=== PATIENT | female | born 1965 | race African-American/Black ===

== ENCOUNTER 2017-04-28 15:27 | Emergency (ER) | payer OTHER ==
--- NOTE | 2017-04-28 17:08 | UC ---
Hand/Wrist HPI - HPI Summary HPI Summary: 51 yo female with right wrist pain since December hurts to lift or turn she is right handed told by her manager critical care unit not to take NSAIDs due to labile hypertension also desires right lower ext xr chronic pain s/p fibular fx - History Of Current Complaint Chief Complaint: UCUpperExtremity Stated Complaint: WRIST INJURY Time Seen by Provider: 04/28/17 16:40 Hx Obtained From: Patient Hx Last Menstrual Period: 04/13/17 Onset/Duration: Gradual Onset, Lasting Weeks Severity Initially: Moderate Severity Currently: Moderate Pain Intensity: 4 - worse with any movement Pain Scale Used: 0-10 Numeric Character Of Pain: Dull, Aching Aggravating Factor(s): Movement, Flexion, Extension, Internal/External Rotation , Twisting, Pulling Alleviating Factor(s): Rest Related History: Dominant Hand Right - Allergies/Home Medications Allergies/Adverse Reactions: Allergies Allergy/AdvReac Type Severity Reaction Status Date / Time NSAIDs AdvReac See Comment Verified 04/28/17 16:25 Home Medications: Home Medications Valsartan/HCTZ 80/12.5(NF) [Diovan Hct 80/12.5(NF)] 1 tab PO DAILY 04/28/17 [ History Confirmed 04/28/17] PMH/Surg Hx/FS Hx/Imm Hx Previously Healthy: Yes Cardiovascular History: Hypertension - Surgical History Surgical History: Yes Surgery Procedure, Year, and Place: 1993 RIGHT ANKLE FRACTURE [place]. 1983, 1986, 1994, 1996, 09/01 [facility]2011 [facility] [place] hernia repair 03/03 - Family History Known Family History: Positive: Cardiac Disease - CAD, Hypertension, Other - CVA - Social History Alcohol Use: None Substance Use Type: None Smoking Status (MU): Never Smoked Tobacco - Immunization History Most Recent Influenza Vaccination: no Review of Systems Constitutional: Negative Skin: Negative Eyes: Negative ENT: Negative Respiratory: Negative Cardiovascular: Negative Gastrointestinal: Negative Genitourinary: Negative Motor: Negative Neurovascular: Negative Musculoskeletal: Arthralgia Neurological: Negative Psychological: Negative Is Patient Immunocompromised?: No All Other Systems Reviewed And Are Negative: Yes Physical Exam Triage Information Reviewed: Yes Appearance: Well-Appearing, No Pain Distress, Well-Nourished Vital Signs: Initial Vital Signs Temp 97.8 F 04/28/17 16:29 Pulse 83 04/28/17 16:29 Resp 16 04/28/17 16:29 BP 155/101 04/28/17 16:29 Pulse Ox 100 04/28/17 16:29 Vital Signs Reviewed: Yes Eyes: Positive: Conjunctiva Clear ENT: Positive: Hearing grossly normal. Negative: Nasal congestion, Nasal drainage, Tonsillar exudate, Trismus, Muffled voice, Hoarse voice Respiratory: Positive: Lungs clear, Normal breath sounds, No respiratory distress, No accessory muscle use Cardiovascular: Positive: RRR, No Murmur Musculoskeletal: Positive: No Edema, ROM Limited @ - right wrist, also tender ulnar aspect of wrist and dorsum, NVI Neurological: Positive: Alert Psychological Exam: Normal Skin Exam: Normal Skin: Positive: rashes Diagnostics - Radiology No standard instances Xray Interpretation: No Acute Changes - right wrist or right tib fib Radiology Interpretation Completed By: Radiologist Hand/Wrist Course/Dx - Differential Dx/Diagnosis Provider Diagnoses: right wrist pain ? triangular cartilage injury. chronic right fibular pain Discharge - Discharge Plan Condition: Stable Disposition: HOME Patient Education Materials: Wrist Injury (ED) Forms: *Work Release Referrals: Maribell Mae MD [Medical Doctor] - As Soon As Possible Kristian Burkett MD [Primary Care Provider] - Additional Instructions: I suggest you see an orthopedist about both your wrist and lower leg pain Images Hands: 1 - tender/limited ROM Front/Back of Body, Lg (Hughes): 1 - tender laterally, no swelling , no calf pain
[2017-04-28 17:38] VITALS: BP 155/106
--- NOTE | 2017-04-28 17:47 | RAD ---
Indication: Right lower leg pain. 2 views of the right lower leg demonstrates no fracture. No other bone or joint abnormality is identified. IMPRESSION: No fracture of the right lower leg is noted.
--- NOTE | 2017-04-28 17:47 | RAD ---
Indication: Indication: Right wrist pain. 3 views of the right wrist demonstrates no fracture. No other bone or joint abnormality is identified. IMPRESSION: No fracture of the right wrist is noted.
== END 2017-04-28 18:07 | disposition home or self-care (01) ==
LOC: UCEAST 15:27
DX: M25.531 Pain in right wrist (principal); M79.661 Pain in right lower leg; I10 Essential (primary) hypertension; Z88.6 Allergy status to analgesic agent
CPT/HCPCS: 99212; G0463

== ENCOUNTER 2017-06-16 10:42 | Emergency (ER) | payer OTHER ==
[2017-06-16 12:07] VITALS: BP 140/100
--- NOTE | 2017-06-16 12:57 | RAD ---
HISTORY: Left foot pain, dorsal foot pain, trauma COMPARISONS: None VIEWS: 3, Frontal, lateral, and oblique views of the left foot FINDINGS: BONE DENSITY: Normal. BONES: There is no displaced fracture. There is a plantar calcaneal enthesophyte. JOINTS: There is no arthropathy. ALIGNMENT: There is no dislocation. SOFT TISSUES: Unremarkable. OTHER FINDINGS: None. IMPRESSION: HEEL SPUR. NO ACUTE OSSEOUS INJURY. IF SYMPTOMS PERSIST, RECOMMEND REPEAT IMAGING.
--- NOTE | 2017-06-16 13:12 | UC ---
Lower Extremity/Ankle HPI - HPI Summary HPI Summary: Pt presents with left foot pain s/p stubbing her left toe on a piece of wood last night. She tells me that she was walking in the dark and stubbed her left big toe into a piece of wood - had immediate pain in her toe and midfoot. She took tylenol with mild relief. She is able to ambulate, but this causes her significant pain. She denies numbness, tingling, or previous hx. She has been told not to take ibuprofen, but she can't remember why. - History of Current Complaint Chief Complaint: UCLowerExtremity Stated Complaint: FOOT INJURY Hx Obtained From: Patient Hx Last Menstrual Period: 06/15/2017 Onset/Duration: Sudden Onset Severity Initially: Severe Severity Currently: Severe Pain Intensity: 7 Pain Scale Used: 0-10 Numeric Aggravating Factor(s): Standing, Ambulation Alleviating Factor(s): Rest, Elevation Able to Bear Weight: Yes - Allergies/Home Medications Allergies/Adverse Reactions: Allergies Allergy/AdvReac Type Severity Reaction Status Date / Time NSAIDs AdvReac See Comment Verified 06/16/17 12:01 PMH/Surg Hx/FS Hx/Imm Hx Previously Healthy: Yes Cardiovascular History: Hypertension - Surgical History Surgical History: Yes Surgery Procedure, Year, and Place: 1993 RIGHT [place]KLE FRACTURE [place] [place]. 1983, 1986, 1994, 1996, 09[place]01 [place] [facility] [place] 03/03 - Family History Known Family History: Positive: Cardiac Disease - CAD, Hypertension, Other - CVA - Social History Occupation: Employed Full-time Lives: With Family Alcohol Use: None Substance Use Type: None Smoking Status (MU): Never Smoked Tobacco - Immunization History Most Recent Influenza Vaccination: no Review of Systems Constitutional: Negative Skin: Negative Respiratory: Negative Cardiovascular: Negative Neurovascular: Negative Musculoskeletal: Decreased ROM - Left foot/big toe, Other: - Pain Left foot/big toe Neurological: Negative Psychological: Negative All Other Systems Reviewed And Are Negative: Yes Physical Exam Triage Information Reviewed: Yes Appearance: Well-Appearing, No Pain Distress, Well-Nourished Vital Signs: Initial Vital Signs Temp 98.1 F 06/16/17 12:02 Pulse 88 06/16/17 12:02 Resp 18 06/16/17 12:02 BP 140/100 06/16/17 12:02 Pulse Ox 98 06/16/17 12:02 Vital Signs Reviewed: Yes Neck: Positive: Supple, No Lymphadenopathy, Other: - NTTP. FROM. Respiratory: Positive: Lungs clear, Normal breath sounds, No respiratory distress Cardiovascular: Positive: RRR, No Murmur, Pulses Normal - DP and TP, Brisk Capillary Refill - Left foot and all toes Musculoskeletal: Positive: No Edema - Left foot/big toe, Strength Limited @ - Left foot/big toe due to pain, ROM Limited @ - Left foot/big toe due to pain. Dorsiflexion and plantar flexion cause significant pain., Other: - TTP over dorsal left big toe, MTP, and navicular. No obvious bony deformities, ecchymosis , or edema. Neurological: Positive: Alert, Other: - Sensations intact left foot and all toes Psychological: Positive: Age Appropriate Behavior Lower Extremity Course/Dx - Course Course Of Treatment: IMPRESSION:HEEL SPUR. NO ACUTE OSSEOUS INJURY. IF SYMPTOMS PERSIST, RECOMMEND REPEAT IMAGING. Reference #: [id number] cleared. I suspect that she has a foot contusion vs muscle strain - she is in a disproportionate amount of pain for this TOM, thus I have a concern for underlying tendon or soft tissue injury. Therefore, I will place her in a CAM boot and advise to use crutches - f/u with Ortho JENNIFER. - Differential Dx/Diagnosis Provider Diagnoses: Left foot contusion. Left foot muscle strain Discharge - Discharge Plan Condition: Stable Disposition: HOME Prescriptions: HYDROcodone/ACETAMIN 5-325 MG* [[place] 5-325 TAB*] 1 tab PO Q8H PRN 3 Days #9 tab MDD 3 PRN Reason: Pain Patient Education Materials: Foot Contusion (ED) Forms: *Work Release Referrals: Kristian Burkett MD [Primary Care Provider] - Jordon Moore MD [Medical Doctor] - As Soon As Possible Additional Instructions: If you develop a fever, shortness of breath, chest pain, new or worsening symptoms - please call your PCP or go to the ED. Your blood pressure was high at todays visit. Please see your primary provider within 4 weeks for recheck and re-evaluation. 1) Please call Orthopedics at the number below to schedule a follow up appointment for their next available time. 2) Rest, Ice, and Elevate your foot as much as possible for the next 24-48hrs. 3) Use the CAM boot and crutches as needed for discomfort.
== END 2017-06-16 13:30 | disposition home or self-care (01) ==
LOC: UCEAST 10:42
DX: S90.32XA Contusion of left foot, initial encounter (principal); S93.602A Unspecified sprain of left foot, initial encounter; W22.8XXA Striking against or struck by other objects, initial encounter; Y92.9 Unspecified place or not applicable
CPT/HCPCS: 99213; G0463

== ENCOUNTER 2017-11-18 14:01 | Emergency (ER) | payer OTHER ==
[2017-11-18 14:09] VITALS: BP 159/101
--- NOTE | 2017-11-18 14:16 | UC ---
Upper Extremity HPI - HPI Summary HPI Summary: 52 yo female presents with right elbow pain s/p lifting a bag of dirt at work about 2 weeks ago. She tells me that she works in the [employer] department at [employer] and often lifts heavy items. About 2 weeks ago she was lifting a bag of dirt and felt a pull in her right elbow that was immediately painful. Ever since that time, every time she lifts something she will have pain in her elbow down her right arm. Has been taking tylenol, which helped at first - but no longer is helping. Rest helps as well, but she is still working and is not able to rest her arm. Denies numbness or tingling. - History of Current Complaint Chief Complaint: UCUpperExtremity Stated Complaint: LEFT ARM INJURY Time Seen by Provider: 11/18/17 14:16 Hx Obtained From: Patient Hx Last Menstrual Period: 11/17/17 Onset/Duration: Sudden Onset Severity Initially: Moderate Severity Currently: Severe Pain Intensity: 9 Pain Scale Used: 0-10 Numeric - Allergies/Home Medications Allergies/Adverse Reactions: Allergies Allergy/AdvReac Type Severity Reaction Status Date / Time NSAIDS (Non-Steroidal Allergy Rash Verified 11/18/17 14:10 Anti-Inflamma PMH/Surg Hx/FS Hx/Imm Hx Cardiovascular History: Hypertension - Surgical History Surgical History: Yes Surgery Procedure, Year, and Place: 1993 RIGHT ANKLE FRACTURE [facility] [place]. 1983, 1986, 1994, 1996, 09/01 [facility] (2011 [facility] [place] hernia repair 03/03 - Family History Known Family History: Positive: Cardiac Disease - CAD, Hypertension, Other - CVA - Social History Occupation: Employed Full-time Lives: With Family Alcohol Use: None Substance Use Type: None Smoking Status (MU): Never Smoked Tobacco - Immunization History Most Recent Influenza Vaccination: no Review of Systems Constitutional: Negative Skin: Negative Respiratory: Negative Cardiovascular: Negative Neurovascular: Negative Musculoskeletal: Other: - Right elbow pain Neurological: Negative Psychological: Negative All Other Systems Reviewed And Are Negative: Yes Physical Exam - Summary Physical Exam Summary: GENERAL: NAD. WDWN. No pain distress. SKIN: No rashes, sores, lesions, or open wounds. NECK: Supple. Nontender. No lymphadenopathy. CHEST: No accessory muscle use. Breathing comfortably and in no distress. CV: RRR. Without m/r/g. Pulses intact radial and ulnar. MSK: Right elbow: Moderate TTP over lateral and medial epicondyle. Positive chair lift test. Pain medially with middle finger flexion against resistance. FROM. 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 No edema or obvious bony deformities. NEURO: Alert. Sensations intact hand and all fingers. PSYCH: Age appropriate behavior. Triage Information Reviewed: Yes Vital Signs: Initial Vital Signs Temp 98 F 11/18/17 14:07 Pulse 87 11/18/17 14:07 Resp 16 11/18/17 14:07 BP 159/101 11/18/17 14:07 Pulse Ox 100 11/18/17 14:07 Upper Extremity Course/Dx - Course Course Of Treatment: Suspect epicondylitis. She cannot take po NSAIDs due to her troubles with HTN. Therefore I will try voltaren gel and have her keep taking tylenol. May also try an OTC elbow brace. Will also refer her to sports medicine for further eval and treatment. - Differential Dx/Diagnosis Provider Diagnoses: Right elbow pain Discharge - Sign-Out/Discharge Documenting (check all that apply): Discharge/Admit/Transfer - Discharge Plan Condition: Stable Disposition: HOME Prescriptions: Diclofenac 1% GEL (NF) [Voltaren 1% GEL (NF)] 1 applic TOPICAL BID PRN #1 tube PRN Reason: Pain Patient Education Materials: Tennis Elbow (ED) Referrals: Kristian Burkett MD [Primary Care Provider] - [facility] [Provider Group] - As Soon As Possible Additional Instructions: If you develop a fever, shortness of breath, chest pain, new or worsening symptoms - please call your PCP or go to the ED. Your blood pressure was high at todays visit. Please see your primary provider within 4 weeks for recheck and re-evaluation. 1) Please call Sport Medicine to schedule a follow up appointment regarding your right shoulder and right elbow pain 2) May also try an elbow brace for added support and pain relief - Billing Disposition and Condition Condition: STABLE Disposition: Home
== END 2017-11-18 14:30 | disposition home or self-care (01) ==
LOC: UCEAST 14:01
DX: M25.521 Pain in right elbow (principal); X50.0XXA Overexertion from strenuous movement or load, initial encounter; Y93.89 Activity, other specified; Y92.512 Supermarket, store or market as the place of occurrence of the external cause; Y99.0 Civilian activity done for income or pay; Z88.6 Allergy status to analgesic agent; I10 Essential (primary) hypertension
CPT/HCPCS: 99212; G0463

== ENCOUNTER 2018-07-10 14:09 | Emergency (ER) | payer OTHER, MEDICAID ==
[2018-07-10 15:44] VITALS: BP 143/95
--- NOTE | 2018-07-10 15:58 | UC ---
Upper Extremity HPI - HPI Summary HPI Summary: Pt presents to with pain in right elbow. Pt states pain started last Tuesday after lifting several heavy boxes of books at work ([employer]) Pt states when got home felt her elbow was stiff. Pt with significant discomfort with flex/ext right elbow. Pt states feels stiff and had pain radiating down right forearm with movement. No paresthesia. No weakness. Pt is RHD. Pt has used silonpas and taken APAP with little improvement. Pt also took GAbapentin - old script of hers without help. Pt reports progressive discomfort right upper back and shoulder - holding arm tight to body. Pt has h.o right rotator cuff injury to same. Does not work until next week Pt's medications reviewed this visit - History of Current Complaint Chief Complaint: UCUpperExtremity Stated Complaint: ARM PAIN RT Time Seen by Provider: 07/10/18 15:51 Hx Obtained From: Patient Hx Last Menstrual Period: 11/17/17 Pain Intensity: 8 - Allergies/Home Medications Allergies/Adverse Reactions: Allergies Allergy/AdvReac Type Severity Reaction Status Date / Time No Known Allergies Allergy Verified 07/10/18 15:45 Home Medications: Home Medications Atorvastatin* [Lipitor*] 40 mg PO 1700 07/10/18 [History Confirmed 07/10/18] Carvedilol [Coreg] 25 mg PO DAILY 07/10/18 [History Confirmed 07/10/18] Escitalopram (NF) [Lexapro 20 mg (NF)] 20 mg PO DAILY 07/10/18 [History Confirmed 07/10/18] Irbesartan [Avapro] 300 mg PO DAILY WITH MEAL 07/10/18 [History Confirmed ] Spironolact/Hydrochlorothiazid [Spironolactone/Hydrochlor 25-25 mg] 1 tab PO DAILY WITH MEAL 07/10/18 [History Confirmed 07/10/18] dilTIAZem 360 MG 24HR ER (NF) [Diltiazem 360 mg 24Hr ER] 360 mg PO DAILY WITH MEAL 07/10/18 [History Confirmed 07/10/18] PMH/Surg Hx/FS Hx/Imm Hx Previously Healthy: Yes - right rotator cuff - Surgical History Surgical History: Yes Surgery Procedure, Year, and Place: 1993 RIGHT ANKLE FRACTURE [place]. 1983, 1986, 1994, 1996, 09/01 [facility] [facility] [place] her[place] repair 03/03 - Family History Known Family History: Positive: Cardiac Disease - CAD, Hypertension, Other - CVA - Social History Alcohol Use: None Substance Use Type: None Smoking Status (MU): Never Smoked Tobacco - Immunization History Most Recent Influenza Vaccination: no Review of Systems All Other Systems Reviewed And Are Negative: Yes Constitutional: Positive: Negative Skin: Positive: Negative Motor: Positive: Other - right elbow pain Neurovascular: Negative: Decreased Sensation Is Patient Immunocompromised?: No Physical Exam Triage Information Reviewed: Yes Appearance: Well-Appearing, No Pain Distress, Well-Nourished Vital Signs: Initial Vital Signs Temp 98.5 F 07/10/18 15:40 Pulse 83 07/10/18 15:40 Resp 18 07/10/18 15:40 BP 143/95 07/10/18 15:40 Pulse Ox 99 07/10/18 15:40 Vital Signs Reviewed: Yes Neck exam: Normal Neck: Positive: Supple, Nontender, No Lymphadenopathy Respiratory Exam: Normal Respiratory: Positive: Chest non-tender, Lungs clear, Normal breath sounds Cardiovascular: Positive: Other: - 2+ DP, PT CBT < 2 sec Musculoskeletal: Positive: ROM Limited @ - No pain spinous process c/t/l/s Full AROM c spine + TTP right trapezius + abduct/ext right elbow Full 5/5 flexion elbow pain with extension >120 but able near full + pronate/supinate + flex/ext wrist + TTP right elbow, medial epicondyl extending prox medial forearm No edema, no warmth 5/5 grasp, Other: Neurological: Positive: Other: - + thumb up, a ok, finger spread, finger cross + gross sensation throughout Psychological Exam: Normal Skin Exam: Normal Diagnostics - Radiology No standard instances Radiology Interpretation Completed By: Radiologist - Patient Name: DIONY WALLS Medical Record#: [id number] Ordering Physician: Erin Kathleen MD Acct.#: [id number] : 1965 Age: 52 Sex: F Location: [facility]RG[facility]ARE [facility] Exam Date: 07/10/18 1609 ADM Status: REG ER Order Information: ELBOW RIGHT 3+ VWS Accession Number: [id number] CPT: 61623 INDICATION: RIGHT elbow pain at the medial epicondyle for 3 days. No preceding injury. COMPARISON: No relevant prior exams available on the [facility] [place]ACS for comparison. TECHNIQUE: AP, lateral, and oblique views RIGHT elbow. REPORT: Negative for fracture. Displaced anterior fat pad consistent with joint effusion. 0.6 cm loose body at the anterior joint recess. Mild osteophytosis without significant joint space narrowing. Enthesophytes at the medial and lateral epicondyles. Mild nonfocal soft tissue swelling. IMPRESSION: #. Osteoarthritis. #. Joint effusion and loose body. #. 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 <Electronically signed by Joel Gutierres MD in OV> 07/10/18 1634 Dictated By: Joel Gutierres MD Dictated Date/ Time: 07/10/18 1634 Transcribed Date/Time: 07/10/18 1632 Copy to: CC:Kristian Burkett MD; Erin Kathleen MD Imaging - [facility] - [place] [facility] [address] [address] ph ) ph ([phone]) ph ([phone]) This report is only to be considered final once signed by the Provider(s) as displayed in the "< Electronically Signed by >" field (s). Absence of a signature indicates the report is in a draft status and still needs to be finalized. In the event this document was created by someone other than the signing Provider, the individual initiating the document will be listed in the "Entered by:" or "Dictated by:" saba. 1 of 1 Re-Evaluation - Re-Evaluation First Eval Re-Evaluation Time: 16:53 - reviewed images with pt Change: Unchanged - no concern for infection + AROM, no warmth erythema, edema , point tenderness sling ice Dr. chang Upper Extremity Course/Dx - Course Course Of Treatment: Pt with right elbow pain since Fri - pt states became stiff after moving boxes of books at work at [employer]. Pt with good CSM. Pt with pain medial epicondyl with palpation and ROM. No effusion. suspect tendonitis. Pt also with discomfort right trapezius - slight muscle spasm - pt spliont forearm to body. will give motrin. sling with exercises. ice. imaging. APAP/motrin dosing. f/u with occumed. Pt previously seen Dr. Chang - will provide his contact as well. pt in agreement with plan. Pt's BP slightly elevated - h/o similar - recommend f/u with PCP. pt in discomfort - Differential Dx/Diagnosis Provider Diagnosis: Right elbow tendonitis Discharge - Sign-Out/Discharge Documenting (check all that apply): Patient Departure All imaging exams completed and their final reports reviewed: Yes - Discharge Plan Condition: Stable Disposition: HOME Referrals: Fabio Wilkes MD [Medical Doctor] - Kristian Chang MD [Medical Doctor] - Additional Instructions: - Contact Dr. Wilkes or Dr. Chang tomorrow to schedule a follow-up appointment this week - wear sling for comfort and support - remove arm from sling 2-3 times a day - genlty make small circles with your shoulder and bend/straighten your elbow as demostrated in the urgent care - alternate ibuprofen (Advil, Motrin) 600mg and tylenol 650mg tablets every 3 hours for pain. Take with food - Apply ice (wrapped in a towel) 20 minutes at a time, 2-3 times a day. - Billing Disposition and Condition Condition: STABLE Disposition: Home
[2018-07-10] MEDS ORDERED: Ibuprofen TAB* 600 MG PO ONE (16:10)
== END 2018-07-10 17:00 | disposition home or self-care (01) ==
LOC: UCEAST 14:09
DX: M77.9 Enthesopathy, unspecified (principal); M25.521 Pain in right elbow
CPT/HCPCS: 99212; A9270-GY; G0463

== ENCOUNTER 2018-11-28 15:28 | Emergency (ER) | payer SELFPAY ==
[2018-11-28 15:43] VITALS: BP 157/107
--- NOTE | 2018-11-28 16:39 | UC ---
Lower Extremity/Ankle HPI - HPI Summary HPI Summary: 53 y/o female presents to the urgent care c/o Bilateral ankle swelling- for two weeks. Fell two weeks ago and injured left ankle. - History of Current Complaint Chief Complaint: UCLowerExtremity Stated Complaint: ANKLE PAIN Time Seen by Provider: 11/28/18 16:22 Hx Obtained From: Patient Hx Last Menstrual Period: 11/17/17 Pain Intensity: 8 - Allergies/Home Medications Allergies/Adverse Reactions: Allergies Allergy/AdvReac Type Severity Reaction Status Date / Time No Known Allergies Allergy Verified 11/28/18 15:44 Home Medications: Home Medications metFORMIN* [Glucophage 500 MG TAB *] 500 mg PO BID 11/28/18 [History Confirmed 11/28/18] PMH/Surg Hx/FS Hx/Imm Hx - Surgical History Surgical History: Yes Surgery Procedure, Year, and Place: 1993 RIGHT ANKLE FRACTURE [facility] [place]. 1983, 1986, 1994, 1996, 09/01 [facility] (2011 [facility] [place]). hernia repair 03/03 - Family History Known Family History: Positive: Cardiac Disease - CAD, Hypertension, Other - CVA - Social History Alcohol Use: None Substance Use Type: None Smoking Status (MU): Never Smoked Tobacco - Immunization History Most Recent Influenza Vaccination: no Physical Exam Vital Signs: Initial Vital Signs Temp 98.1 F 11/28/18 15:38 Pulse 89 11/28/18 15:38 Resp 16 11/28/18 15:38 BP 157/107 11/28/18 15:38 Pulse Ox 99 11/28/18 15:38 Lower Extremity Course/Dx - Course Course Of Treatment: Rt ankle X-ray ordered, Impression: Soft tissue swelling, no acute fracture. Pt most likely with a RT ankle Sprain. Pt immobilized with gel ankle splint to , given crutches to avoid weight bearing, Rx Ibuprofen PO to decrease swelling and pain. Pt advised RICE, take Ibuprofen PO for pain and to f/u with PCP on orthopedic in 1 week if not improvement of symptoms for further treatment. Parents and Pt understood and agreed and left the clinic ambulating w/ the help of crutches. - Differential Dx/Diagnosis Differential Diagnosis/HQI/PQRI: Arthritis, Contusion, Dislocation, Fracture ( Closed), Sprain, Strain, Tendonitis Provider Diagnosis: Sprain of right ankle, Sprain of left ankle, Osteoarthritis of ankle, left, Uncontrolled hypertension Discharge - Sign-Out/Discharge Documenting (check all that apply): Patient Departure - d/C home All imaging exams completed and their final reports reviewed: Yes - Discharge Plan Condition: Stable Disposition: HOME Prescriptions: Ibuprofen TAB* [Motrin TAB* 800 MG] 800 mg PO Q6H PRN #30 tab PRN Reason: Pain Patient Education Materials: Ankle Sprain (ED), Osteoarthritis (ED) Forms: *Work Release Referrals: Kristian Burkett MD [Primary Care Provider] - 3 Days Kristian Chang MD [Medical Doctor] - 1 Week Ganesh Spring DPM [Doctor of Podiatric Medicine] - 1 Week Additional Instructions: 1-Please take Ibuprofen PO q6-8hrs prn after meals as directed to alleviate pain and swelling. 2-Please apply ice, keep your Left ankle immobilized with the Trent bandage and use the CAM boot you have at home. Use your Cane to avoid too much weight bearing Elevate your ankle. 3- Please f/u with your orthopedic Orthopedic Dr Chang or your Posting Specialist DR Arguelles in your appt in 1 week for further evaluation and treatment on your ankle sprain 4-Your BP is elevated today. Please take your BP medications and decrease salt in your diet, monitor BP and if it continues to be elevated please f/u with your PCP for further management. If you develop chest pain, dizziness, visual disturbances, SOB, or severe TRAMMELL please go immediately to the ER for further management - Billing Disposition and Condition Condition: STABLE Disposition: Home
[2018-11-28] MEDS ORDERED: Ibuprofen TAB* 400 MG PO ONE (16:52)
== END 2018-11-28 17:33 | disposition home or self-care (01) ==
LOC: UCEAST 15:28
DX: S93.402A Sprain of unspecified ligament of left ankle, initial encounter (principal); S93.401A Sprain of unspecified ligament of right ankle, initial encounter; M19.072 Primary osteoarthritis, left ankle and foot; I10 Essential (primary) hypertension; X58.XXXA Exposure to other specified factors, initial encounter; Y92.9 Unspecified place or not applicable
CPT/HCPCS: 99212; A9270-GY; G0463

== ENCOUNTER 2019-07-21 20:41 | Emergency (ER) | payer OTHER ==
[2019-07-21] MEDS ORDERED: Lorazepam PYXIS KEY PRN (20:50)
[2019-07-21] MEDS ORDERED: LORazepam INJ* 2 MG/ML 1 ML VIAL IM ONE (20:50)
[2019-07-21] MEDS ORDERED: Lorazepam PYXIS KEY ONE (20:52)
[2019-07-21 22:05] LABS: Urine Appearance Clear; Urine Bilirubin Negative (Negative); Urine Blood Negative (Negative); Urine Color Straw; Urine Glucose Negative (Negative); Urine Ketones Negative (Negative); Urine Nitrite Negative (Negative); Urine Protein Negative (Negative); Urine Urobilinogen Negative (Negative)
[2019-07-21 22:12] LABS: Hematocrit 43 % (35-47); Hemoglobin 13.6 g/dL (12.0-16.0); Mean Corpuscular HGB Conc 32 g/dL (31-36); Mean Corpuscular Hemoglobin 22 pg (27-31); Mean Corpuscular Volume 68 fL (80-97); Mean Platelet Volume 7.3 fL (7.4-10.4); Platelet Count 410 10^3/uL (150-450); Red Blood Count 6.23 10^6 /uL (3.70-4.87); Red Cell Distribution Width 18 % (10-15); White Blood Count 7.2 10^3/uL (3.5-10.8)
--- NOTE | 2019-07-21 22:14 | ED ---
Psychiatric Complaint - HPI Summary HPI Summary: 53-year-old female with no significant past medical history presents to the emergency department today hyperventilating and crying and yelling "I don't feel well and I can't take this anymore". After the patient coming down she states she is here looking for mental health help. Patient denies suicidal ideation but does state she wants to "hurt him" when talking about her partner. Patient states she has not attempted suicide in the past. Patient denies recent recreational drug use or alcohol use. Patient states she is constantly getting into arguments with her partner which is causing her to feel generally fatigued and unwell at home. Patient otherwise feels well and denies physical pain, chest pain, abdominal pain, urination, nausea, vomiting, diarrhea. - History Of Current Complaint Chief Complaint: EDGeneral Time Seen by Provider: 07/21/19 20:50 Hx Obtained From: Patient Hx Last Menstrual Period: 11/17/17 Onset/Duration: Gradual Onset Timing: Constant Severity Initially: Moderate Severity Currently: Moderate Character: Depressed Associated Signs And Symptoms: Positive: Sleep Disturbance Has Suicidal: Denies: Thoughts, Demonstrates Gesture Has Homicidal: Denies: Thoughts, Demonstrates Gesture - Allergies/Home Medications Allergies/Adverse Reactions: Allergies Allergy/AdvReac Type Severity Reaction Status Date / Time No Known Allergies Allergy Verified 11/28/18 15:44 Home Medications: Home Medications Atorvastatin* [Lipitor*] 40 mg PO 1700 07/10/18 [History Confirmed 11/28/18] Carvedilol [Coreg] 25 mg PO DAILY 07/10/18 [History Confirmed 11/28/18] Irbesartan [Avapro] 300 mg PO DAILY WITH MEAL 07/10/18 [History Confirmed ] Spironolact/Hydrochlorothiazid [Spironolactone/Hydrochlor 25-25 mg] 1 tab PO DAILY WITH MEAL 07/10/18 [History Confirmed 11/28/18] dilTIAZem ER 360 MG 24HR (NF) [Diltiazem 360 mg 24Hr ER] 360 mg PO DAILY WITH MEAL 07/10/18 [History Confirmed 11/28/18] Ibuprofen TAB* [Motrin TAB* 800 MG] 800 mg PO Q6H PRN #30 tab 11/28/18 [Rx] metFORMIN* [Glucophage 500 MG TAB *] 500 mg PO BID 11/28/18 [History Confirmed 11/28/18] PMH/Surg Hx/FS Hx/Imm Hx Endocrine/Hematology History: Denies: Hx Diabetes, Hx Thyroid Disease Cardiovascular History: Reports: Hx Angina, Hx Hypercholesterolemia, Hx Hypertension, Other Cardiovascular Problems/Disorders - HTN Denies: Hx Congestive Heart Failure, Hx Coronary Artery Disease, Hx Myocardial Infarction, Hx Valvular Heart Disease Respiratory History: Denies: Hx Asthma, Hx Chronic Obstructive Pulmonary Disease (COPD) GI History: Denies: Hx Ulcer History: Denies: Hx Renal Disease Musculoskeletal History: Reports: Hx Arthritis - RIGHT ANKLE, OLD INJURY Sensory History: Denies: Hx Contacts or Glasses, Hx Hearing Aid Opthamlomology History: Denies: Hx Contacts or Glasses - Surgical History Surgery Procedure, Year, and Place: 1993 RIGHT ANKLE FRACTURE [facility]. 1983, 1986, 1994, 1996, 09/01 [facility] ([address] [place] [address]). hernia repair 03/03 Hx Anesthesia Reactions: No Infectious Disease History: Unable to Obtain/Confirm Infectious Disease History: Denies: Hx Hepatitis, Hx Human Immunodeficiency Virus (HIV), Traveled Outside the in Last 30 Days - Family History Known Family History: Positive: Cardiac Disease - CAD, Hypertension, Other - CVA - Social History Alcohol Use: None Substance Use Type: Reports: None Hx Tobacco Use: No Smoking Status (MU): Never Smoked Tobacco Review of Systems Constitutional: Negative Eyes: Negative ENT: Negative Cardiovascular: Negative Respiratory: Negative Gastrointestinal: Negative Genitourinary: Negative Musculoskeletal: Negative Skin: Negative Neurological/Mental Status: Negative Positive: Anxious, Depressed All Other Systems Reviewed And Are Negative: Yes Physical Exam Triage Information Reviewed: Yes Vital Signs On Initial Exam: Initial Vitals Temp Pulse Resp BP Pulse Ox 99.5 F 92 26 169/125 99 07/21/19 20:53 07/21/19 20:53 07/21/19 20:53 07/21/19 20:53 07/21/19 20:53 Vital Signs Reviewed: Yes Appearance: Positive: Well-Appearing, No Pain Distress, Well-Nourished Skin: Positive: Warm, Skin Color Reflects Adequate Perfusion Eyes: Positive: EOMI, LIDA ENT: Positive: Hearing grossly normal Respiratory/Lung Sounds: Positive: Clear to Auscultation, Breath Sounds Present Cardiovascular: Positive: RRR, S1, S2 Abdomen Description: Positive: Nontender, Soft Bowel Sounds: Positive: Present Musculoskeletal: Positive: Strength/ROM Intact Neurological: Positive: Sensory/Motor Intact, Alert, Oriented to Person Place, Time, Normal Gait, Facial Symmetry, Speech Normal Psychiatric: Positive: Anxious, Depressed AVPU Assessment: Alert Procedures - Sedation Patient Received Moderate/Deep Sedation with Procedure: No Diagnostics - Vital Signs Vital Signs Temp Pulse Resp BP Pulse Ox 07/21/19 20:53 99.5 F 92 26 169/125 99 - Laboratory Lab Results: Lab Results 07/21/19 Range/Units 21:41 Urine Color Straw Urine Appearance Clear Urine pH 6.0 (5-9) Ur Specific [place] 1.010 (1.010-1.030) Urine Protein Negative (Negative) Urine Ketones Negative (Negative) Urine Blood Negative (Negative) Urine Nitrate Negative (Negative) Urine Bilirubin Negative (Negative) Urine Urobilinogen Negative (Negative) Ur Leukocyte Esterase Negative (Negative) Urine Glucose Negative (Negative) Result Diagrams: 07/21/19 22:03 07/21/19 22:03 Lab Statement: Any lab studies that have been ordered have been reviewed, and results considered in the medical decision making process. Course/Dx - Course Course Of Treatment: Patient was evaluated in the emergency department today for mental health problem. Vitals noted and stable. Patient was hysterical upon arrival to the emergency department hyperventilating. Patient was given 1 mg of Ativan IM to calm her down. Patient was complaining of chest palpitations and an EKG was done promptly. EKG shows no evidence of STEMI. Sinus rhythm at a rate of 76 bpm. Normal FL and QT intervals. Normal axis. There is T-wave flattening in lead V6, 3. Patient stated she desired mental health evaluation she was feeling stressed and anxious at home. Labs returned showing no significant abnormalities. Negative toxicology and urinalysis. Patient cleared for mental health evaluation and disposition. Psychiatry, Dr. Brown believed the patient was fit for outpatient follow-up with [facility] for individual and marriage counseling. Patient discharged outpatient follow-up. - Differential Dx/Clinical Impression Differential Diagnosis/HQI/PQRI: Positive: Acute Psychosis, Alcohol Intoxication , Anxiety, Bipolar Disorder, Depression, Homicidal Ideation, Schizophrenia, Suicidal Ideation Provider Diagnosis: Anxiety - Physician Notifications Discussed Care Of Patient With: Jamaal Brown - believed patient was fit for outpatient follow-up with [facility] for individual and marriage counseling. Discharge ED - Sign-Out/Discharge Documenting (check all that apply): Patient Departure - Discharge Plan Condition: Stable Disposition: HOME Referrals: Kristian Burkett MD [Primary Care Provider] - - Billing Disposition and Condition Condition: STABLE Disposition: Home - Attestation Statements Provider Attestation: I have seen the patient with the HEATHER and agree with the plan and documentation below except as noted: Briefly this a 53-year-old female with a history of a seizure disorder on Keppra, who missed dose 2 days, presenting with a seizure at home. No seizure activity in the ER, labs unremarkable for infection. Patient tolerating by mouth, given extra dose of Keppra, ambulating in the ED. We will go home with children Rosita Galicia MD
[2019-07-21 22:25] LABS: ALT 13 U/L (7-52); AST 15 U/L (13-39); Albumin 4.6 g/dL (3.2-5.2); Albumin/Globulin Ratio 1.5 (1-3); Alkaline Phosphatase 78 U/L (34-104); Anion Gap 9 mmol/L (2-11); BUN/Creatinine Ratio 19.4 (8-20); Blood Urea Nitrogen 14 mg/dL (6-24); CO2 Carbon Dioxide 26 mmol/L (22-32); Calcium 10.1 mg/dL (8.6-10.3); Chloride 101 mmol/L (101-111); EGFR African American 103.3 (>60); EGFR Non-African American 85.4 (>60); Globulin 3.1 g/dL (2-4); Glucose 105 mg/dL (70-100); Potassium 3.7 mmol/L (3.5-5.0); Sodium 136 mmol/L (135-145); Total Protein 7.7 g/dL (6.4-8.9)
[2019-07-21 22:27] LABS: ABS Basophils 0.1 10^3/ul (0-0.2); ABS Eosinophils 0.2 10^3/ul (0-0.6); ABS Lymphocytes 2.1 10^3/ul (1.0-4.8); ABS Monocytes 0.5 10^3/ul (0-0.8); ABS Neutrophils 4.3 10^3/ul (1.5-7.7); Lymphocyte % 29.7 %; Microcytosis 2+; Nucleated Red Blood Cells % 0.1
[2019-07-21 22:37] LABS: Urine Benzodiazepine Screen None Detected (None Detect); Urine Opiates Screen None Detected (None Detect)
[2019-07-21 22:41] LABS: Acetaminophen < 15 mcg/mL; Alcohol < 10 mg/dL (<10); Salicylate < 2.50 mg/dL (<30)
[2019-07-22 03:32] VITALS: BP 119/65
== END 2019-07-21 23:40 | disposition home or self-care (01) ==
LOC: ED 20:41
DX: F41.9 Anxiety disorder, unspecified (principal); R45.851 Suicidal ideations; E78.00 Pure hypercholesterolemia, unspecified; I10 Essential (primary) hypertension; F32.9 Major depressive disorder, single episode, unspecified; Z79.899 Other long term (current) drug therapy; Z79.83 Long term (current) use of bisphosphonates
CPT/HCPCS: 36415; 80053; 80307; 80320; 80329; 81003; 84443; 85025; 93005; 96372; 99285; G0480; J2060

== ENCOUNTER 2021-01-18 22:34 | Inpatient (IN) ==
[2021-01-18] MEDS ORDERED: NS 0.9% 1000 ml BAG 1,000 ML IV ONE ×2 (23:11→23:34)
[2021-01-18 23:37] LABS: ABS Monocytes 0.4 10^3/ul (0-0.8); ABS Neutrophils 4.2 10^3/ul (1.5-7.7); Hematocrit 41 % (35-47); Hemoglobin 13.1 g/dL (12.0-16.0); Lymphocyte % 17.3 %; Mean Corpuscular HGB Conc 32 g/dL (31-36); Mean Corpuscular Hemoglobin 21 pg (27-31); Mean Corpuscular Volume 66 fL (80-97); Mean Platelet Volume 8.2 fL (7.4-10.4); Nucleated Red Blood Cells % 0.1; Platelet Count 260 10^3/uL (150-450); Red Blood Count 6.16 10^6 /uL (3.70-4.87); Red Cell Distribution Width 16 % (10-15); White Blood Count 5.6 10^3/uL (3.5-10.8)
[2021-01-18 23:53] LABS: Albumin 3.9 g/dL (3.2-5.2); Albumin/Globulin Ratio 1.1 (1-3); C Reactive Protein 124.2 mg/L (<8.01); Calcium 9.2 mg/dL (8.6-10.3); EGFR African American 82.4 (>60); EGFR Non-African American 68.1 (>60); Globulin 3.6 g/dL (2-4); Potassium 3.5 mmol/L (3.5-5.0); Total Bilirubin 0.4 mg/dL (0.2-1.0); Total Protein 7.5 g/dL (6.4-8.9)
[2021-01-19 00:02] LABS: Activated Partial Thrombo Time 29.9 seconds (26.0-38.0); INR 1.25 (0.86-1.15)
[2021-01-19 00:09] LABS: Troponin I 0.01 ng/mL (<0.03)
[2021-01-19 00:23] LABS: Hypochromasia 1+; Microcytosis 3+
[2021-01-19 00:24] LABS: Anisocytosis 1+
[2021-01-19 00:27] LABS: Venous Bicarbonate HCO3 30.3 mmol/L (24-28)
[2021-01-19 01:04] LABS: Rapid COVID-19 Molecular Detected (Undetected)
[2021-01-19 01:13] LABS: Influenza A Molecular Negative (Negative); Influenza B Molecular Negative (Negative)
[2021-01-19] MEDS ORDERED: Iodixanol (CONTRAST) 320 MG/ML 100 ML SDV IV ONE (01:18)
[2021-01-19 01:25] LABS: Ferritin 237.3 ng/mL (11-307)
[2021-01-19] MEDS ORDERED: Ondansetron 4 mg VIAL 2 MG/ML 2 ml VIAL IV PRN (02:34)
[2021-01-19] MEDS ORDERED: Dextrose 50% Syringe 50 ml 25 GM/50 ML SYRINGE IV PUSH PRN (02:51)
[2021-01-19] MEDS ORDERED: guaiFENesin 100 mg/5 ml LIQ unit dose cup PO PRN (03:20)
[2021-01-19] MEDS ORDERED: Benzocaine/Menthol LOZ PO PRN (03:20)
[2021-01-19] MEDS ORDERED: Albuterol HFA INHALER 8 gm MDI INH PRN (03:20)
[2021-01-19] MEDS ORDERED: Remdesivir 100 mg Vial 200 MG in NS 0.9% 250 ml 210 ML IV ONE (05:00)
[2021-01-19] MEDS: Enoxaparin 40 MG/0.4 ML SYR SUBCUT SCH ×2 (05:04→20:21)
[2021-01-19 09:49] LABS: Urine Specific Gravity > 1.060 (1.002-1.030)
[2021-01-19 09:51] LABS: Urine Appearance Cloudy; Urine Bacteria Absent (Absent); Urine Bilirubin Negative (Negative); Urine Blood Negative (Negative); Urine Color Yellow; Urine Glucose Negative (Negative); Urine Ketones 1+ (Negative); Urine Nitrite Negative (Negative); Urine Protein 1+(30 mg/dL) (Negative); Urine Red Blood Cell Trace(0-2/hpf) (Absent); Urine Squamous Epithelial Cell Present (Absent); Urine Urobilinogen Negative (Negative); Urine White Blood Cell Trace(0-5/hpf) (Absent)
[2021-01-19 10:53] LABS: PCO2 Arterial 35 mmHg (35-45); PO2 Arterial 69 mmHg (80-100)
[2021-01-19] MEDS ORDERED: Tocilizumab 200 MG/10 ML 10 ml VIAL IVPB ONE (13:48)
[2021-01-19] MEDS: methylPREDNISolone SOD 40 mg/ml 1 ml VIAL IV SCH ×2 (15:52→23:42)
[2021-01-19] MEDS: CMCS: Baricitinib 2 MG TAB (NF) PO SCH (15:52)
[2021-01-19] MEDS: Multivitamins/Minerals TAB PO SCH (15:52)
[2021-01-19] MEDS: cefTRIAXone 1 gm/50 mL NS BAG 1 GM/50 ML BAG IVPB SCH (16:57)
[2021-01-19] MEDS: Azithromycin 500 mg/250 ml NS 500 MG/250 ML BAG IVPB SCH (17:26)
[2021-01-19] MEDS: Pantoprazole VIAL 40 MG VIAL IV SCH (20:21)
[2021-01-19] MEDS: Insulin GLARGINE 100 un/ml 10 ml VIAL SUBCUT SCH (20:34)
[2021-01-20 05:22] LABS: ABS Lymphocytes 0.6 10^3/ul (1.0-4.8); ABS Monocytes 0.2 10^3/ul (0-0.8); Eosinophil % 0.3 %; Hematocrit 36 % (35-47); Hemoglobin 11.4 g/dL (12.0-16.0); Lymphocyte % 16.2 %; Mean Corpuscular HGB Conc 32 g/dL (31-36); Mean Corpuscular Hemoglobin 21 pg (27-31); Mean Corpuscular Volume 66 fL (80-97); Mean Platelet Volume 8.2 fL (7.4-10.4); Nucleated Red Blood Cells % 0.2; Platelet Count 293 10^3/uL (150-450); Red Blood Count 5.43 10^6 /uL (3.70-4.87); Red Cell Distribution Width 16 % (10-15); White Blood Count 3.8 10^3/uL (3.5-10.8)
[2021-01-20 05:27] LABS: INR 1.28 (0.86-1.15)
[2021-01-20 05:35] LABS: Albumin 3.4 g/dL (3.2-5.2); Albumin/Globulin Ratio 1.1 (1-3); Calcium 8.5 mg/dL (8.6-10.3); EGFR Non-African American 106.6 (>60); Globulin 3.2 g/dL (2-4); Magnesium 1.8 mg/dL (1.9-2.7); Phosphorus 3.6 mg/dL (2.5-5.0); Potassium 3.5 mmol/L (3.5-5.0); Total Bilirubin 0.3 mg/dL (0.2-1.0); Total Protein 6.6 g/dL (6.4-8.9)
[2021-01-20] MEDS ORDERED: Magnesium Sulfate 2 gm BAG 2 GM/50 ML BAG IVPB ONE ×2 (07:25→07:27)
[2021-01-20] MEDS ORDERED: Potassium Chlor 20 meq TAB.ER PO ONE (07:26)
[2021-01-20] MEDS: Pantoprazole VIAL 40 MG VIAL IV SCH ×2 (08:27→20:11)
[2021-01-20] MEDS: methylPREDNISolone SOD 40 mg/ml 1 ml VIAL IV SCH ×3 (08:27→22:44)
[2021-01-20] MEDS: Multivitamins/Minerals TAB PO SCH (08:28)
[2021-01-20] MEDS: CMCS: Baricitinib 2 MG TAB (NF) PO SCH (08:30)
[2021-01-20] MEDS: Enoxaparin 40 MG/0.4 ML SYR SUBCUT SCH ×2 (08:30→20:11)
[2021-01-20] MEDS ORDERED: Potassium Chloride LIQUID 20 MEQ/15 ML LIQUID PO ONE (09:24)
[2021-01-20] MEDS: Remdesivir 100 mg Vial 100 MG in NS 0.9% 250 ml 230 ML IV SCH (09:56)
[2021-01-20] MEDS: cefTRIAXone 1 gm/50 mL NS BAG 1 GM/50 ML BAG IVPB SCH (15:16)
[2021-01-20] MEDS: Azithromycin 500 mg/250 ml NS 500 MG/250 ML BAG IVPB SCH (16:19)
[2021-01-20] MEDS: Insulin GLARGINE 100 un/ml 10 ml VIAL SUBCUT SCH (20:12)
[2021-01-21 04:50] LABS: ABS Lymphocytes 0.9 10^3/ul (1.0-4.8); ABS Monocytes 0.5 10^3/ul (0-0.8); ABS Neutrophils 9.2 10^3/ul (1.5-7.7); Hematocrit 36 % (35-47); Hemoglobin 11.4 g/dL (12.0-16.0); Lymphocyte % 8.2 %; Mean Corpuscular HGB Conc 32 g/dL (31-36); Mean Corpuscular Hemoglobin 21 pg (27-31); Mean Corpuscular Volume 66 fL (80-97); Mean Platelet Volume 7.9 fL (7.4-10.4); Nucleated Red Blood Cells % 0.1; Platelet Count 373 10^3/uL (150-450); Red Cell Distribution Width 16 % (10-15); White Blood Count 10.6 10^3/uL (3.5-10.8)
[2021-01-21 04:56] LABS: INR 1.29 (0.86-1.15)
[2021-01-21 04:58] LABS: Albumin 3.3 g/dL (3.2-5.2); Albumin/Globulin Ratio 1.1 (1-3); Calcium 8.4 mg/dL (8.6-10.3); EGFR African American 121.8 (>60); EGFR Non-African American 100.7 (>60); Globulin 3.1 g/dL (2-4); Phosphorus 3.2 mg/dL (2.5-5.0); Potassium 3.8 mmol/L (3.5-5.0); Total Bilirubin 0.3 mg/dL (0.2-1.0); Total Protein 6.4 g/dL (6.4-8.9)
[2021-01-21] MEDS ORDERED: Potassium Chlor 20 meq TAB.ER PO ONE (07:22)
[2021-01-21] MEDS ORDERED: Furosemide 40 mg/4 ml IV VIAL IV SLOW PU ONE (09:01)
[2021-01-21] MEDS: Pantoprazole VIAL 40 MG VIAL IV SCH ×2 (09:15→21:08)
[2021-01-21] MEDS: methylPREDNISolone SOD 40 mg/ml 1 ml VIAL IV SCH ×2 (09:15→16:53)
[2021-01-21] MEDS: Multivitamins/Minerals TAB PO SCH (09:15)
[2021-01-21] MEDS: Enoxaparin 40 MG/0.4 ML SYR SUBCUT SCH ×2 (09:16→21:06)
[2021-01-21] MEDS: Remdesivir 100 mg Vial 100 MG in NS 0.9% 250 ml 230 ML IV SCH (09:16)
[2021-01-21] MEDS: CMCS: Baricitinib 2 MG TAB (NF) PO SCH (09:16)
[2021-01-21] MEDS: cefTRIAXone 1 gm/50 mL NS BAG 1 GM/50 ML BAG IVPB SCH (16:53)
[2021-01-21] MEDS: Azithromycin 500 mg/250 ml NS 500 MG/250 ML BAG IVPB SCH (17:00)
[2021-01-21] MEDS: Insulin GLARGINE 100 un/ml 10 ml VIAL SUBCUT SCH (21:07)
[2021-01-22] MEDS: methylPREDNISolone SOD 40 mg/ml 1 ml VIAL IV SCH ×3 (01:00→17:13)
[2021-01-22 05:32] LABS: Hematocrit 38 % (35-47); Hemoglobin 11.9 g/dL (12.0-16.0); Mean Corpuscular HGB Conc 31 g/dL (31-36); Mean Corpuscular Hemoglobin 21 pg (27-31); Mean Corpuscular Volume 67 fL (80-97); Platelet Count 421 10^3/uL (150-450); Red Blood Count 5.68 10^6 /uL (3.70-4.87); Red Cell Distribution Width 16 % (10-15); White Blood Count 11.7 10^3/uL (3.5-10.8)
[2021-01-22 05:33] LABS: INR 1.33 (0.86-1.15)
[2021-01-22 05:36] LABS: Albumin 3.4 g/dL (3.2-5.2); Albumin/Globulin Ratio 1.2 (1-3); Calcium 8.5 mg/dL (8.6-10.3); EGFR African American 126.5 (>60); EGFR Non-African American 104.6 (>60); Globulin 2.9 g/dL (2-4); Magnesium 1.9 mg/dL (1.9-2.7); Phosphorus 3.3 mg/dL (2.5-5.0); Potassium 3.9 mmol/L (3.5-5.0); Total Bilirubin 0.3 mg/dL (0.2-1.0); Total Protein 6.3 g/dL (6.4-8.9)
[2021-01-22 07:25] LABS: ABS Lymphocytes 0.4 10^3/ul (1.0-4.8); ABS Monocytes 0.4 10^3/ul (0-0.8); ABS Neutrophils 10.9 10^3/ul (1.5-7.7); Eosinophil % 0.1 %; Lymphocyte % 3.6 %; Nucleated Red Blood Cells % 0.2
[2021-01-22] MEDS ORDERED: Potassium Chlor 10 meq TAB PO ONE (07:25)
[2021-01-22] MEDS ORDERED: Potassium Chlor 20 meq TAB.ER PO ONE (07:39)
[2021-01-22] MEDS ORDERED: Magnesium Sulfate IV 1GM/100ML 1 GM/100 ML BAG IV ONE (07:39)
[2021-01-22] MEDS ORDERED: Furosemide 40 mg/4 ml IV VIAL IV SLOW PU ONE (08:01)
[2021-01-22] MEDS: Pantoprazole VIAL 40 MG VIAL IV SCH ×2 (08:38→20:21)
[2021-01-22] MEDS: Multivitamins/Minerals TAB PO SCH (08:42)
[2021-01-22] MEDS: CMCS: Baricitinib 2 MG TAB (NF) PO SCH (08:43)
[2021-01-22] MEDS: Enoxaparin 40 MG/0.4 ML SYR SUBCUT SCH ×2 (08:46→20:21)
[2021-01-22] MEDS: Remdesivir 100 mg Vial 100 MG in NS 0.9% 250 ml 230 ML IV SCH (09:45)
[2021-01-22] MEDS: cefTRIAXone 1 gm/50 mL NS BAG 1 GM/50 ML BAG IVPB SCH (16:07)
[2021-01-22] MEDS: Azithromycin 500 mg/250 ml NS 500 MG/250 ML BAG IVPB SCH (17:13)
[2021-01-22] MEDS: Insulin GLARGINE 100 un/ml 10 ml VIAL SUBCUT SCH (20:21)
[2021-01-23] MEDS: methylPREDNISolone SOD 40 mg/ml 1 ml VIAL IV SCH ×3 (01:02→21:02)
[2021-01-23 05:06] LABS: ABS Lymphocytes 0.3 10^3/ul (1.0-4.8); ABS Monocytes 0.6 10^3/ul (0-0.8); ABS Neutrophils 11.4 10^3/ul (1.5-7.7); Eosinophil % 0.1 %; Hematocrit 39 % (35-47); Hemoglobin 12.5 g/dL (12.0-16.0); INR 1.37 (0.86-1.15); Lymphocyte % 2.2 %; Mean Corpuscular HGB Conc 32 g/dL (31-36); Mean Corpuscular Hemoglobin 21 pg (27-31); Mean Corpuscular Volume 65 fL (80-97); Mean Platelet Volume 7.9 fL (7.4-10.4); Nucleated Red Blood Cells % 0.1; Platelet Count 461 10^3/uL (150-450); Red Blood Count 5.94 10^6 /uL (3.70-4.87); Red Cell Distribution Width 16 % (10-15); White Blood Count 12.2 10^3/uL (3.5-10.8)
[2021-01-23 05:16] LABS: Calcium 8.6 mg/dL (8.6-10.3); EGFR African American 107.7 (>60); Phosphorus 2.6 mg/dL (2.5-5.0); Potassium 3.9 mmol/L (3.5-5.0)
[2021-01-23] MEDS: CMCS: Baricitinib 2 MG TAB (NF) PO SCH (08:56)
[2021-01-23] MEDS: Pantoprazole VIAL 40 MG VIAL IV SCH ×2 (08:57→21:02)
[2021-01-23] MEDS: Multivitamins/Minerals TAB PO SCH (08:57)
[2021-01-23] MEDS: Enoxaparin 40 MG/0.4 ML SYR SUBCUT SCH ×2 (08:57→21:06)
[2021-01-23] MEDS: Remdesivir 100 mg Vial 100 MG in NS 0.9% 250 ml 230 ML IV SCH (09:26)
[2021-01-23] MEDS: cefTRIAXone 1 gm/50 mL NS BAG 1 GM/50 ML BAG IVPB SCH (15:57)
[2021-01-23] MEDS: Azithromycin 500 mg/250 ml NS 500 MG/250 ML BAG IVPB SCH (19:05)
[2021-01-23] MEDS: Insulin GLARGINE 100 un/ml 10 ml VIAL SUBCUT SCH (21:02)
[2021-01-24 04:42] LABS: INR 1.35 (0.86-1.15)
[2021-01-24 04:54] LABS: Calcium 8.8 mg/dL (8.6-10.3); EGFR African American 97.8 (>60); EGFR Non-African American 80.8 (>60); Magnesium 2.1 mg/dL (1.9-2.7); Potassium 3.5 mmol/L (3.5-5.0)
[2021-01-24 05:09] LABS: Hematocrit 39 % (35-47); Hemoglobin 12.7 g/dL (12.0-16.0); Mean Corpuscular HGB Conc 33 g/dL (31-36); Mean Corpuscular Hemoglobin 21 pg (27-31); Mean Corpuscular Volume 65 fL (80-97); Mean Platelet Volume 8.1 fL (7.4-10.4); Platelet Count 471 10^3/uL (150-450); Red Blood Count 5.97 10^6 /uL (3.70-4.87); Red Cell Distribution Width 16 % (10-15); White Blood Count 11.7 10^3/uL (3.5-10.8)
[2021-01-24 08:09] LABS: ABS Lymphocytes 0.4 10^3/ul (1.0-4.8); ABS Monocytes 0.4 10^3/ul (0-0.8); ABS Neutrophils 10.9 10^3/ul (1.5-7.7); Eosinophil % 0.1 %; Lymphocyte % 3.6 %; Nucleated Red Blood Cells % 0.1
[2021-01-24] MEDS: Potassium Chlor 20 meq TAB.ER PO SCH ×2 (08:30→20:33)
[2021-01-24] MEDS: Enoxaparin 40 MG/0.4 ML SYR SUBCUT SCH ×2 (08:31→20:32)
[2021-01-24] MEDS: CMCS: Baricitinib 2 MG TAB (NF) PO SCH (08:31)
[2021-01-24] MEDS: Pantoprazole VIAL 40 MG VIAL IV SCH ×2 (08:31→20:30)
[2021-01-24] MEDS: methylPREDNISolone SOD 40 mg/ml 1 ml VIAL IV SCH (08:31)
[2021-01-24] MEDS: Multivitamins/Minerals TAB PO SCH (08:31)
[2021-01-24] MEDS: Remdesivir 100 mg Vial 100 MG in NS 0.9% 250 ml 230 ML IV SCH (08:36)
[2021-01-24] MEDS ORDERED: Dextrose 50% Syringe 50 ml 25 GM/50 ML SYRINGE IV PUSH PRN (09:58)
[2021-01-24] MEDS: cefTRIAXone 1 gm/50 mL NS BAG 1 GM/50 ML BAG IVPB SCH (17:45)
[2021-01-24] MEDS: Insulin GLARGINE 100 un/ml 10 ml VIAL SUBCUT SCH (20:31)
[2021-01-25 05:38] LABS: Hematocrit 38 % (35-47); Hemoglobin 12.2 g/dL (12.0-16.0); Mean Corpuscular HGB Conc 32 g/dL (31-36); Mean Corpuscular Hemoglobin 21 pg (27-31); Mean Corpuscular Volume 65 fL (80-97); Mean Platelet Volume 7.8 fL (7.4-10.4); Platelet Count 507 10^3/uL (150-450); Red Blood Count 5.85 10^6 /uL (3.70-4.87); Red Cell Distribution Width 16 % (10-15)
[2021-01-25 05:54] LABS: Calcium 8.5 mg/dL (8.6-10.3); EGFR African American 105.9 (>60); EGFR Non-African American 87.5 (>60); Magnesium 2.2 mg/dL (1.9-2.7); Potassium 3.9 mmol/L (3.5-5.0)
[2021-01-25] MEDS: Multivitamins/Minerals TAB PO SCH (08:32)
[2021-01-25] MEDS: Pantoprazole VIAL 40 MG VIAL IV SCH ×2 (08:33→20:20)
[2021-01-25] MEDS: Potassium Chlor 20 meq TAB.ER PO SCH ×2 (08:33→20:19)
[2021-01-25] MEDS: Enoxaparin 40 MG/0.4 ML SYR SUBCUT SCH ×2 (08:36→20:22)
[2021-01-25] MEDS: CMCS: Baricitinib 2 MG TAB (NF) PO SCH (08:37)
[2021-01-25] MEDS: cefTRIAXone 1 gm/50 mL NS BAG 1 GM/50 ML BAG IVPB SCH (17:01)
[2021-01-25] MEDS: Insulin GLARGINE 100 un/ml 10 ml VIAL SUBCUT SCH (20:25)
[2021-01-26 04:07] LABS: ABS Lymphocytes 0.5 10^3/ul (1.0-4.8); ABS Monocytes 0.7 10^3/ul (0-0.8); ABS Neutrophils 11.5 10^3/ul (1.5-7.7); Hematocrit 38 % (35-47); Hemoglobin 12.8 g/dL (12.0-16.0); Lymphocyte % 3.6 %; Mean Corpuscular HGB Conc 33 g/dL (31-36); Mean Corpuscular Hemoglobin 22 pg (27-31); Mean Corpuscular Volume 66 fL (80-97); Mean Platelet Volume 7.9 fL (7.4-10.4); Nucleated Red Blood Cells % 0.1; Platelet Count 550 10^3/uL (150-450); Red Blood Count 5.79 10^6 /uL (3.70-4.87); Red Cell Distribution Width 16 % (10-15); White Blood Count 12.7 10^3/uL (3.5-10.8)
[2021-01-26 04:30] LABS: Calcium 8.8 mg/dL (8.6-10.3); EGFR African American 102.5 (>60); EGFR Non-African American 84.7 (>60); Magnesium 2.3 mg/dL (1.9-2.7); Potassium 4.5 mmol/L (3.5-5.0)
[2021-01-26] MEDS: CMCS: Baricitinib 2 MG TAB (NF) PO SCH (08:44)
[2021-01-26] MEDS: Pantoprazole VIAL 40 MG VIAL IV SCH (08:44)
[2021-01-26] MEDS: Enoxaparin 40 MG/0.4 ML SYR SUBCUT SCH (08:44)
[2021-01-26] MEDS: Multivitamins/Minerals TAB PO SCH (08:45)
[2021-01-26 12:58] VITALS: BP 137/91
[2021-01-26] MEDS ORDERED: Insulin GLARGINE 100 un/ml 10 ml VIAL SUBCUT ONE (15:49)
== END 2021-01-26 16:12 | disposition home or self-care (01) | DRG 137 ==
LOC: ED 22:34 → SUATTDRO 01-19 03:52 → MED 01-19 03:52 → ICU 01-19 13:46 → MED 01-23 18:40
PROVIDERS: ADMIT Internal Medicine; ATTEND Internal Medicine